=== PATIENT | female | born 1955 ===

== ENCOUNTER 2017-10-01 15:32 | Emergency (ER) | payer MEDICAID ==
[2017-10-01 16:05] VITALS: RESP 16; TEMP 97.9
[2017-10-01 18:06] LABS: BASO # 0.1 K/uL (0.0-0.2); BASO % 0.7 % (0.0-2.0); EOS # 0.1 K/uL (0.0-0.7); EOS % 1.4 % (0.0-4.0); HEMOGLOBIN 13.5 g/dL (12.0-16.0); LYMPH # 2.5 K/uL (1.0-4.3); LYMPH % 30.2 % (20.0-40.0); MEAN CELL VOLUME 91.2 fl (81.0-99.0); MEAN CORPUSCULAR HEMOGLOBIN 30.3 pg (27.0-31.0); MEAN CORPUSCULAR HGB CONC 33.3 g/dL (33.0-37.0); MEAN PLATELET VOLUME 10.2 fl (7.2-11.7); MONO # 0.5 K/uL (0.0-0.8); MONO % 6.4 % (0.0-10.0); NEUT # 5.1 K/uL (1.8-7.0); NEUT % 61.3 % (50.0-75.0); RBC 4.47 Mil/uL (3.80-5.20); RED CELL DISTRIBUTION WIDTH 14.3 % (11.5-14.5); WHITE BLOOD COUNT 8.4 K/uL (4.8-10.8)
[2017-10-01 18:14] LABS: ALB/GLOB RATIO 0.9 (1.0-2.1); ALBUMIN 4.1 g/dL (3.5-5.0); ALT/SGPT 32 U/L (9-52); AST/SGOT 35 U/L (14-36); BLOOD UREA NITROGEN 24 mg/dl (7-17); CALCIUM 9.5 mg/dL (8.4-10.2); GFR AFRICAN-AMERICAN > 60; GFR NON-AFRICAN AMERICAN > 60
[2017-10-01 18:15] LABS: URINE BILIRUBIN NEGATIVE (NEGATIVE); URINE BLOOD NEGATIVE (NEGATIVE); URINE CLARITY CLEAR (Clear); URINE COLOR STRAW (YELLOW); URINE GLUCOSE (UA) NEG (Normal); URINE LEUKOCYTE ESTERASE NEG Leu/uL (Negative); URINE PROTEIN NEGATIVE (NEGATIVE); URINE UROBILINOGEN 0.2-1.0 mg/dL (0.2-1.0)
--- NOTE | 2017-10-01 19:23 | CT ---
PROCEDURE: CT Abdomen and Pelvis without intravenous contrast HISTORY: right flank pain, nausea COMPARISON: Abdomen and pelvis CT 02/20/2009. TECHNIQUE: Helical CT of the abdomen and pelvis was performed without oral or intravenous contrast as per referring physician request. Contrast dose: None Radiation dose: Total exam DLP = 1651.58 mGy-cm. This CT exam was performed using one or more of the following dose reduction techniques: Automated exposure control, adjustment of the mA and/or kV according to patient size, and/or use of iterative reconstruction technique. FINDINGS: LOWER THORAX: Small hiatal hernia identified. Lung bases are otherwise clear. LIVER: Unremarkable. No gross lesion or ductal dilatation. GALLBLADDER AND BILE DUCTS: Unremarkable. PANCREAS: Unremarkable. No gross lesion or ductal dilatation. SPLEEN: Unremarkable. ADRENALS: Unremarkable. No mass. KIDNEYS AND URETERS: No radiodense urolithiasis, obstructive uropathy or significant perinephric reaction bilaterally. Urinary bladder is collapsed. No ureteral dilatation bilaterally. VASCULATURE: Unremarkable. No aortic aneurysm. BOWEL: Lack of oral contrast limits evaluation the bowel including the stomach. There is no bowel obstruction identified. Prominent fecal loading seen throughout the colon, borderline for constipation. APPENDIX: Unremarkable. Normal appendix. PERITONEUM: Unremarkable. No free fluid. No free air. LYMPH NODES: Unremarkable. No enlarged lymph nodes. BLADDER: Unremarkable. REPRODUCTIVE: Calcified fibroid noted at the high left fundus posteriorly. BONES: No acute fracture. OTHER FINDINGS: None. IMPRESSION: No obstructive uropathy, radiodense urolithiasis or perinephric reaction appreciated. The urinary bladder is unremarkable. Prominent fecal loading borderline for constipation. Limited fibroid uterine changes.
--- NOTE | 2017-10-01 20:23 | ED PDOC ---
HPI: Back Time Seen by Provider: 10/01/17 16:29 Chief Complaint (Nursing): Abdominal Pain Chief Complaint (Provider): Back pain radiating to abdomen and down the legs Past Medical History Vital Signs: Last Vital Signs Temp 97.9 F 10/01/17 16:04 Pulse 84 10/01/17 16:04 Resp 16 10/01/17 16:04 BP 129/73 10/01/17 16:04 Pulse Ox 100 10/01/17 16:04 - Family History Family History: States: Unknown Family Hx - Home Medications Home Medications: Ambulatory Orders Medication Instructions Recorded Ibuprofen 600 mg PO Q6 PRN #15 tablet 05/09/15 Cyclobenzaprine [Cyclobenzaprine 10 mg PO Q8H #20 tab 10/01/17 HCl] predniSONE [predniSONE Tab] 20 mg PO DAILY #12 tab 10/01/17 - Allergies Allergies/Adverse Reactions: Allergies Allergy/AdvReac Type Severity Reaction Status Date / Time No Known Allergies Allergy Verified 10/01/17 16:03 - Laboratory Results Result Diagrams: 10/01/17 17:56 10/01/17 17:56 - ECG O2 Sat by Pulse Oximetry: 100 Disposition - Clinical Impression Clinical Impression: Low back pain - Patient ED Disposition Is Patient to be Admitted: No Counseled Patient/Family Regarding: Diagnosis, Need For Followup - Disposition Disposition: Routine/Home Disposition Time: 20:25 Condition: STABLE Prescriptions: Cyclobenzaprine [Cyclobenzaprine HCl] 10 mg PO Q8H #20 tab predniSONE [predniSONE Tab] 20 mg PO DAILY #12 tab Instructions: Low Back Pain in Adults Print Language: PRYDEINIG
[2017-10-01 20:45] VITALS: BP 130/77; PULSE 71; O2SAT 98
--- NOTE | 2017-10-02 13:20 | CT ---
PROCEDURE: CT Lumbar Spine without contrast HISTORY: low back pain COMPARISON: Abdomen pelvis CT without contrast 10/01/2017. TECHNIQUE: Axial computed tomography images were obtained of the lumbar spine without the use of intravenous contrast. Coronal and sagittal reformatted images were created and reviewed. Radiation dose: Total exam DLP = 1430.06 mGy-cm. This CT exam was performed using one or more of the following dose reduction techniques: Automated exposure control, adjustment of the mA and/or kV according to patient size, and/or use of iterative reconstruction technique. FINDINGS: VERTEBRAE: Unremarkable. No fracture. Minimal grade 1 spondylolisthesis L3-4 with L3 slightly anterior L4. Marked disc height loss, endplate sclerosis and vacuum disc changes indicates severe degenerative disease L4-5. DISCS/SPINAL CANAL/NEURAL FORAMINA: L1-2: Unremarkable. L2-3: Unremarkable. L3-4: Disc bulging and minimal grade 1 spondylolisthesis is identified resulting in a mild central canal stenosis and mild bilateral neural foraminal stenosis. L4-5: A generalized disc osteophyte complex is appreciated combining with facet joint degenerative changes stenosing the lateral recesses but without significant generalized central canal stenosis. Foraminal osteophytes about disc bulging to cause moderate bilateral neural foraminal stenosis. L5-S1: Unremarkable. No large disc herniation identified throughout the exam however MRI is more sensitive than CT and can be performed if clinically warranted. PARASPINAL SOFT TISSUES: Unremarkable. OTHER FINDINGS: None. IMPRESSION: 1. Mild degenerative central canal and bilateral neural foramina stenosis L3-4 on the basis of the degenerative grade 1 spondylolisthesis and disc bulging as well as facet arthropathy. No spondylolysis identified. 2. Bilateral lateral recess stenosis L4-5, degenerative. Moderate degenerative bilateral neural foraminal stenoses L4-5.
== END 2017-10-01 20:45 | disposition home or self-care (01) ==
LOC: H.ER 15:32
DX: M54.5 Low back pain (principal); R10.9 Unspecified abdominal pain
CPT/HCPCS: 72131; 74176; 80053; 81003; 85025; 87040; 87086; 96374; 99285; J1885